=== PATIENT | male | born 1975 | race American Indian/Alaskan Native ===

== ENCOUNTER 2018-07-28 15:46 | Outpatient (CLI) | payer BC ==
--- NOTE | 2018-07-29 03:51 | XRay Report ---
PROCEDURE: XR CHEST ROUTINE 2V TECHNIQUE: 3 views of the chest HISTORY: CERVICALGIA, pre-op, obesity COMPARISONS: None FINDINGS: The cardiomediastinal silhouette appears normal. The lungs are clear. The bones and soft tissues are unremarkable. IMPRESSION: No evidence of acute cardiopulmonary disease. This document is electronically signed by Mona Estrada MD., Jul 29 2018 03:49:37 AM ET
== END 2018-07-28 15:47 | disposition home or self-care (01) ==
LOC: CARD 15:46
PROVIDERS: ATTEND Nurse Practitioner Family
DX: Z01.818 Encounter for other preprocedural examination (principal); M54.2 Cervicalgia; E66.9 Obesity, unspecified
CPT/HCPCS: 71046; 93005; 93010